=== PATIENT | male | born 1950 | race Caucasian/White ===

== ENCOUNTER 2017-01-31 15:35 | Inpatient (IN) | payer BC, MEDICARE ==
[~2017-01-31 15:35] MED LIST: ENALAPRIL MALEA10 MG PO; EQL FISH OIL 1,1 CA1 PO; NAPROSYN500 MG PO
[2017-01-31] MEDS ORDERED: ZYLOPRIM100 M1 PO (15:44)
[2017-01-31] MEDS ORDERED: BYSTOLIC5 M1 PO (15:45)
[2017-01-31] MEDS ORDERED: NORVASC5 M2 PO (15:45)
[2017-01-31] MEDS ORDERED: ZOCOR20 M1 PO (15:45)
[2017-01-31] MEDS ORDERED: PROAIR HFA8.5 GM INH (15:55)
[2017-01-31 15:56] LABS: BASO % 0.6 % (0-2); BASO ABSOLUTE COUNT 0.1 tho/cmm (0.0-0.2); EOS % 4.3 % (0-7); EOSINOPHIL ABSOLUTE COUNT 0.3 tho/cmm (0.0-0.7); HCT-HEMATOCRIT 47.2 % (36.0-53.5); HGB-HEMOGLOBIN 16.2 gm/dl (13.5-17.0); IMMATURE GRANULOCYTES ABSOLUTE 0.02 tho/cmm (0-0.03); IMMATURE GRANULOCYTES PERCENT 0.3 % (0-0.3); LYMPH % 16.8 % (20-45); LYMPH ABSOLUTE COUNT 1.3 tho/cmm (0.8-4.5); MCH (MEAN CORPUSCULAR HGB) 32.1 pg (28.0-32.0); MCHC MEAN CORPUSCULAR HGB CONC 34.3 % (32.0-36.0); MCV (MEAN CELL VOLUME) 93.5 fl (82.0-96.0); MEAN PLATELET VOLUME 10.2 cmc (9.4-12.4); MONO % 11.3 % (0-12); MONOCYTE ABSOLUTE COUNT 0.9 tho/cmm (0.0-1.2); NEUTROPHIL ABSOLUTE COUNT 5.3 tho/cmm (1.6-8.0); NEUTROPHIL-AUTOMATED 5.3 tho/cmm (1.6-8.0); NEUTROPHILS % 66.7 % (40-80); PLATELET COUNT 172 tho/cmm (150-450); RED BLOOD COUNT 5.05 mil/cmm (4.40-5.70); RED CELL DISTRIBUTION WIDTH 13.5 % (12.4-16.4); WHITE BLOOD COUNT 7.9 tho/cmm (4.0-10.0)
[2017-01-31] MEDS ORDERED: FLONASE ALLERG9.9 ML (15:56)
[2017-01-31 16:12] LABS: ANION GAP 13 mmol/L (0-20); BLOOD UREA NITROGEN 36 mg/dl (6-24); CALCIUM 9.5 mg/dl (8.5-10.5); CARBON DIOXIDE-VENOUS 27 mmol/L (22-32); CHLORIDE 107 mmol/l (96-110); CREATININE 2.36 mg/dl (0.60-1.30); GLUCOSE 99 mg/dL (70-110); SODIUM 143 mmol/L (135-145); eGFR VALUE FOR BLACK 32 mL/Min
[2017-01-31] MEDS ORDERED: ADVAIR 25028 BLISTE1 PO (16:13)
[2017-01-31 16:14] LABS: POTASSIUM 4.4 mmol/L (3.7-5.1)
[2017-01-31] MEDS ORDERED: SPIRIVA18 MC1 INH (16:14)
[2017-01-31] MEDS ORDERED: TYLENOL EXTRA500 M1 PO (16:14)
[2017-01-31] MEDS ORDERED: ALEVE220 M3 PO (16:15)
[2017-02-01 05:58] LABS: BASO % 0.2 % (0-2); EOS % 0.2 % (0-7); HCT-HEMATOCRIT 45.4 % (36.0-53.5); HGB-HEMOGLOBIN 15.3 gm/dl (13.5-17.0); LYMPH % 9.7 % (20-45); LYMPH ABSOLUTE COUNT 0.4 tho/cmm (0.8-4.5); MCH (MEAN CORPUSCULAR HGB) 31.7 pg (28.0-32.0); MCHC MEAN CORPUSCULAR HGB CONC 33.7 % (32.0-36.0); MEAN PLATELET VOLUME 9.7 cmc (9.4-12.4); NEUTROPHIL ABSOLUTE COUNT 3.7 tho/cmm (1.6-8.0); NEUTROPHIL-AUTOMATED 3.7 tho/cmm (1.6-8.0); NEUTROPHILS % 88.9 % (40-80); PLATELET COUNT 163 tho/cmm (150-450); RED BLOOD COUNT 4.83 mil/cmm (4.40-5.70); RED CELL DISTRIBUTION WIDTH 13.3 % (12.4-16.4); WHITE BLOOD COUNT 4.1 tho/cmm (4.0-10.0)
[2017-02-01 06:18] LABS: ALB/GLOB RATIO 0.7 (0.8-2.0); ALKALINE PHOSPHATASE 86 U/L (33-138); ALT/SGPT 29 U/L (12-78); BILIRUBIN,TOTAL 0.3 mg/dl (0.0-1.5); BLOOD UREA NITROGEN 33 mg/dl (6-24); CARBON DIOXIDE-VENOUS 25 mmol/L (22-32); CHLORIDE 106 mmol/l (96-110); CREATININE 2.18 mg/dl (0.60-1.30); SODIUM 141 mmol/L (135-145); eGFR VALUE FOR BLACK 36 mL/Min
[2017-02-01 06:22] LABS: ANION GAP 14 mmol/L (0-20); AST/SGOT 25 U/L (10-40); GLUCOSE 167 mg/dL (70-110); POTASSIUM 4.1 mmol/L (3.7-5.1)
[2017-02-02 05:28] LABS: ANION GAP 14 mmol/L (0-20); BLOOD UREA NITROGEN 38 mg/dl (6-24); CALCIUM 8.8 mg/dl (8.5-10.5); CARBON DIOXIDE-VENOUS 26 mmol/L (22-32); CHLORIDE 107 mmol/l (96-110); CREATININE 2.16 mg/dl (0.60-1.30); GLUCOSE 140 mg/dL (70-110); POTASSIUM 4.5 mmol/L (3.7-5.1); SODIUM 142 mmol/L (135-145); eGFR VALUE FOR BLACK 36 mL/Min
[2017-02-02 14:20] LABS: ABG CO2 ARTERIAL 22 mmol/L (21-27); ARTERIAL BLD GAS O2 SATURATION 91 % (95-98); ARTERIAL BLOOD GAS PCO2 35 mmHg (32-45); ARTERIAL PO2 62 mmHg (70-100); BICARBONATE 21 mmol/L (21-28); BLOOD GAS BASE EXCESS -3 mM/L (-/+3); PH 7.39 Units (7.35-7.45)
[2017-02-03 07:26] LABS: ANION GAP 10 mmol/L (0-20); BLOOD UREA NITROGEN 43 mg/dl (6-24); CALCIUM 8.2 mg/dl (8.5-10.5); CARBON DIOXIDE-VENOUS 28 mmol/L (22-32); CHLORIDE 112 mmol/l (96-110); CREATININE 2.11 mg/dl (0.60-1.30); GLUCOSE 95 mg/dL (70-110); POTASSIUM 4.4 mmol/L (3.7-5.1); SODIUM 146 mmol/L (135-145); eGFR VALUE FOR BLACK 37 mL/Min
[2017-02-03 20:23] LABS: BASO % 0.1 % (0-2); HCT-HEMATOCRIT 44.4 % (36.0-53.5); IMMATURE GRANULOCYTES ABSOLUTE 0.06 tho/cmm (0-0.03); IMMATURE GRANULOCYTES PERCENT 0.5 % (0-0.3); LYMPH % 6.6 % (20-45); LYMPH ABSOLUTE COUNT 0.8 tho/cmm (0.8-4.5); MCH (MEAN CORPUSCULAR HGB) 32.1 pg (28.0-32.0); MCHC MEAN CORPUSCULAR HGB CONC 33.8 % (32.0-36.0); MCV (MEAN CELL VOLUME) 94.9 fl (82.0-96.0); MEAN PLATELET VOLUME 9.2 cmc (9.4-12.4); MONO % 5.6 % (0-12); MONOCYTE ABSOLUTE COUNT 0.6 tho/cmm (0.0-1.2); NEUTROPHIL ABSOLUTE COUNT 10.1 tho/cmm (1.6-8.0); NEUTROPHIL-AUTOMATED 10.1 tho/cmm (1.6-8.0); NEUTROPHILS % 87.2 % (40-80); PLATELET COUNT 191 tho/cmm (150-450); RED BLOOD COUNT 4.68 mil/cmm (4.40-5.70); RED CELL DISTRIBUTION WIDTH 13.7 % (12.4-16.4)
[2017-02-03 20:24] LABS: WHITE BLOOD COUNT 11.5 tho/cmm (4.0-10.0)
[2017-02-03 20:35] LABS: PROTHROMBIN TIME 11.1 SECONDS (9.0-13.6)
[2017-02-04 06:20] LABS: ANION GAP 11 mmol/L (0-20); BLOOD UREA NITROGEN 36 mg/dl (6-24); CALCIUM 8.3 mg/dl (8.5-10.5); CARBON DIOXIDE-VENOUS 28 mmol/L (22-32); CHLORIDE 111 mmol/l (96-110); CREATININE 2.04 mg/dl (0.60-1.30); GLUCOSE 92 mg/dL (70-110); POTASSIUM 4.3 mmol/L (3.7-5.1); SODIUM 146 mmol/L (135-145); eGFR VALUE FOR BLACK 38 mL/Min
[2017-02-05 05:29] LABS: BASO % 0.1 % (0-2); EOS % 2.1 % (0-7); EOSINOPHIL ABSOLUTE COUNT 0.2 tho/cmm (0.0-0.7); HCT-HEMATOCRIT 41.1 % (36.0-53.5); HGB-HEMOGLOBIN 13.9 gm/dl (13.5-17.0); IMMATURE GRANULOCYTES ABSOLUTE 0.13 tho/cmm (0-0.03); IMMATURE GRANULOCYTES PERCENT 1.7 % (0-0.3); LYMPH % 21.2 % (20-45); LYMPH ABSOLUTE COUNT 1.7 tho/cmm (0.8-4.5); MCH (MEAN CORPUSCULAR HGB) 31.9 pg (28.0-32.0); MCHC MEAN CORPUSCULAR HGB CONC 33.8 % (32.0-36.0); MCV (MEAN CELL VOLUME) 94.3 fl (82.0-96.0); MEAN PLATELET VOLUME 9.4 cmc (9.4-12.4); MONO % 10.3 % (0-12); MONOCYTE ABSOLUTE COUNT 0.8 tho/cmm (0.0-1.2); NEUTROPHILS % 64.6 % (40-80); PLATELET COUNT 195 tho/cmm (150-450); RED BLOOD COUNT 4.36 mil/cmm (4.40-5.70); RED CELL DISTRIBUTION WIDTH 13.7 % (12.4-16.4); WHITE BLOOD COUNT 7.8 tho/cmm (4.0-10.0)
[2017-02-05 05:54] LABS: ANION GAP 8 mmol/L (0-20); BLOOD UREA NITROGEN 30 mg/dl (6-24); CALCIUM 8.4 mg/dl (8.5-10.5); CARBON DIOXIDE-VENOUS 31 mmol/L (22-32); CHLORIDE 109 mmol/l (96-110); GLUCOSE 93 mg/dL (70-110); POTASSIUM 4.3 mmol/L (3.7-5.1); SODIUM 144 mmol/L (135-145); eGFR VALUE FOR BLACK 42 mL/Min
[2017-02-05] MEDS ORDERED: VIBRAMYCIN100 M1 PO (12:39)
[2017-02-05] MEDS ORDERED: VENTOLIN HFA18 G2 INH (12:40)
[2017-02-05] MEDS ORDERED: SPIRIVA18 MC1 INH (12:40)
[2017-02-05] MEDS ORDERED: ADVAIR 25028 BLISTE1 INH (12:41)
[2017-02-05] MEDS ORDERED: PREDNISONE10 M1 PO (12:42)
[2017-02-05] MEDS ORDERED: FLOMAX0.4 M1 PO (12:43)
[2017-02-05] MEDS ORDERED: XARELTO20 M1 PO (12:43)
[2017-02-05] MEDS ORDERED: XARELTO1 EACH PO (12:43)
[2017-02-05] MEDS ORDERED: MUCINEX600 M1 PO (12:51)
== END 2017-02-05 15:45 | DRG 190 ==
LOC: EDMED 15:35 → EMR2 17:33 → 5WE 19:41
PROVIDERS: Emergency Medicine; Hospitalist; Internal Medicine; Internal Medicine Critical Care Medicine; ADMIT Hospitalist
PROC: 3E0F7GC Introduction of Other Therapeutic Substance into Respiratory Tract, Via Natural or Artificial Opening (ICD-10-PCS; 2017-01-31)
PROC: B54NZZA Ultrasonography of Left Upper Extremity Veins, Guidance (ICD-10-PCS; 2017-02-02)
PROC: 05HC33Z Insertion of Infusion Device into Left Basilic Vein, Percutaneous Approach (ICD-10-PCS; 2017-02-02)
PROC: 4A09XMZ Measurement of Respiratory Total Activity, External Approach (ICD-10-PCS; principal; 2017-02-03)
PROC: B246ZZZ Ultrasonography of Right and Left Heart (ICD-10-PCS; 2017-02-04)
PROC: B54DZZZ Ultrasonography of Bilateral Lower Extremity Veins (ICD-10-PCS; 2017-02-04)
DX: J44.0 Chronic obstructive pulmonary disease with (acute) lower respiratory infection (principal); J96.01 Acute respiratory failure with hypoxia; I26.99 Other pulmonary embolism without acute cor pulmonale; N17.9 Acute kidney failure, unspecified; J44.1 Chronic obstructive pulmonary disease with (acute) exacerbation; E78.5 Hyperlipidemia, unspecified; J20.9 Acute bronchitis, unspecified; I12.9 Hypertensive chronic kidney disease with stage 1 through stage 4 chronic kidney disease, or unspecified chronic kidney disease; N18.3 Chronic kidney disease, stage 3 (moderate); N40.0 Benign prostatic hyperplasia without lower urinary tract symptoms; Z23 Encounter for immunization
CPT/HCPCS: A9540; A9558; C1751; G8978-GP-CJ; G8979-GP-CJ; G8980-GP-CJ; J1644; J1650; J1956; J2920; J2930; J7030; J7512